=== PATIENT | male | born 1980 | race Two or more races ===

== ENCOUNTER 2018-03-06 18:35 | Emergency (ER) | payer OTHER ==
[~2018-03-06] VITALS: Ht 182.9 cm; Wt 70.3 kg
[2018-03-06 19:16] LABS: BASOPHILS # (AUTO) 0.1 K/uL (0.0-8.0); BASOPHILS % (AUTO) 0.9 % (0.0-2.0); EOSINOPHILS % (AUTO) 0.7 % (0.0-7.0); HEMATOCRIT 44.4 % (36.7-47.1); HEMOGLOBIN 14.7 g/dL (12.5-16.3); LYMPHOCYTES # (AUTO) 1.4 K/uL (20.0-40.0); LYMPHOCYTES % (AUTO) 22.9 % (20.5-51.5); MEAN CORPUSCULAR HEMOGLOBIN 28.9 uug (23.8-33.4); MEAN CORPUSCULAR HGB CONC 33 g/dL (32.5-36.3); MEAN CORPUSCULAR VOLUME 87.6 fL (73.0-96.2); MONOCYTES # (AUTO) 0.4 K/uL (2.0-10.0); MONOCYTES % (AUTO) 5.8 % (0.0-11.0); NEUTROPHILS # (AUTO) 4.2 K/uL (1.8-8.9); NEUTROPHILS % (AUTO) 69.7 % (38.5-71.5); PLATELET COUNT (AUTO) 216 K/uL (152-348); RED BLOOD CELL COUNT(AUTO) 5.07 MIL/uL (4.06-5.63)
[2018-03-06 19:27] LABS: CARBON DIOXIDE 29 mmol/L (21-32); CHLORIDE 103 mmol/L (98-107); GLUCOSE 97 mg/dL (74-106); UREA NITROGEN, BLOOD 11 mg/dL (7-18)
--- NOTE | 2018-03-06 19:28 | NUR ---
PT IS IN ROOM #1B. DR CRUZ EVALUATED THE PT.
--- NOTE | 2018-03-06 19:30 | NUR ---
REPORT GIVEN TO AUDREY FERRARO.
[2018-03-06 19:32] LABS: ALANINE AMINOTRANSFERASE 32 U/L (16-63); ALKALINE PHOSPHATASE 135 U/L (50-136); ASPARTATE AMINOTRANSFERASE 15 U/L (15-37); BILIRUBIN,DIRECT 0.1 mg/dL (0.0-0.2); BILIRUBIN,TOTAL 0.3 mg/dL (0.2-1.0); TOTAL PROTEIN, SERUM 7.5 g/dL (6.4-8.2)
[2018-03-06 19:35] LABS: ACETAMINOPHEN < 2.0 ug/mL (10-30)
[2018-03-06 19:36] LABS: ETHANOL < 3 MG/DL (0-0)
--- NOTE | 2018-03-06 19:40 | NUR ---
Report received. Patient in bed with security delivery specialist at bedside for safety. Patient denies SI and visual, auditory hallucinations. Asking why he's being held. Awaiting to be medically clear.
--- NOTE | 2018-03-06 20:00 | NUR ---
Medically cleared by Dr. Mejias. Call placed to [facility] by Jacques VENTURA.
--- NOTE | 2018-03-06 20:20 | NUR ---
Patient agitated; questioning why he's on hold. Claiming that the call was false and denying that he was going to kill self. Advised appropriately. ocean lifeguard with patient for constant supervision. Now awaiting patient's transfer to [facility] facility.
--- NOTE | 2018-03-06 20:30 | NUR ---
Spoke to Padmini Squires regarding transfering patient to [facility]. Intake will assist on setting up transfer
[2018-03-06] MEDS ORDERED: LORAZEPAM 0.5 MG TABLET PO ONE (21:15)
--- NOTE | 2018-03-06 21:18 | NUR ---
Padmini Squires from PET team called back. Instructed to Fax Facesheet to [employer]
--- NOTE | 2018-03-06 21:20 | NUR ---
Refusing po Zyprexa. Patient with increasing agitation. Demanding his belongings and a phone call. A copy of the hold given to patient.
[2018-03-06] MEDS ORDERED: OLANZAPINE ZYDIS 5 MG TAB.RAPDIS ONE (21:30)
--- NOTE | 2018-03-06 21:45 | NUR ---
1:1 information systems security analyst supervision maintained. Patient called his mom. Still denying SI and hallucinations. Advised appropriately of his hold. Able to take Zyprexa after.
[2018-03-06] MEDS: OLANZAPINE ZYDIS 5 MG TAB.RAPDIS PO SCH (21:48)
[2018-03-06] MEDS ORDERED: LORAZEPAM 0.5 MG TABLET ONE (21:56)
--- NOTE | 2018-03-06 22:25 | NUR ---
called [facility] [phone] and spoke to Dhaval herrera. Was instructed to call [facility] Intake [phone]
[2018-03-06 22:26] LABS: *BILIRUBIN,URIN NEGATIVE (NEGATIVE); *BLOOD, URINE Trace-intact (NEGATIVE); *CLARITY,URINE SLIGHTLY CLOUDY (CLEAR); *COLOR,URINE YELLOW (YELLOW); *KETONES,URINE NEGATIVE (NEGATIVE); *PROTEIN,URINE NEGATIVE (NEGATIVE); *UROBILINOGEN,URINE 0.2 E.U./dl (NORMAL); LEUKOCYTE ESTERASE ,URINE NEGATIVE (NEGATIVE); NITRITE, URINE NEGATIVE (NEGATIVE); UGLUCOSE NEGATIVE (NEGATIVE)
--- NOTE | 2018-03-06 22:30 | NUR ---
Still refusing Ativan po.
--- NOTE | 2018-03-06 22:30 | NUR ---
Spoke to intake. States they are unable to accept patient due to [facility] being an LPS center
--- NOTE | 2018-03-06 22:33 | NUR ---
Informed Padmini Squires about patient desposition. Patient will be re eval in AM
[2018-03-06 22:38] LABS: BACTERIA,URINE NONE SEEN /HPF (NONE SEEN); SQUAMOUS EPITHELIAL CELL,UR FEW /HPF (NONE SEEN); WBC,URINE 0-3 /HPF (0-3)
--- NOTE | 2018-03-06 22:55 | NUR ---
Took Ativan after discussing with patient its effects. Ambulated to the BR; constant supervision maintained.
[2018-03-06 22:57] LABS: *AMPHETAMINE, URINE POSITIVE (NEGATIVE); *BARBITURATE, URINE NEGATIVE (NEGATIVE); *CANNABINOID, URINE NEGATIVE (NEGATIVE); *COCCAINE, URINE NEGATIVE (NEGATIVE); *OPIATE, URINE NEGATIVE (NEGATIVE); *PHENCYCLIDINE SCREEN,URINE NEGATIVE (NEGATIVE)
--- NOTE | 2018-03-07 01:05 | NUR ---
Pt resting comfortably in bed. No acute distress noted. Sitter at bedside.
--- NOTE | 2018-03-07 02:32 | NUR ---
Pt resting comfortably in bed. No acute distress noted. Sitter at bedside.
[2018-03-07] MEDS ORDERED: LORAZEPAM 0.5 MG TABLET PO ONE (05:15)
[2018-03-07] MEDS ORDERED: IV NORMAL SALINE 1000 ML BAG IV ONE (05:15)
[2018-03-07] MEDS: OLANZAPINE ZYDIS 5 MG TAB.RAPDIS PO SCH (05:21)
--- NOTE | 2018-03-07 07:14 | NUR ---
Report given to day shift RN.
--- NOTE | 2018-03-07 07:15 | NUR ---
recieved pt in bed, resting, bf ordered.
--- NOTE | 2018-03-07 09:02 | NUR ---
shantell españa at bedside to evaluate the pt.
--- NOTE | 2018-03-07 09:36 | NUR ---
Patient discharged to home in stable conditon. Written and verbal after care instructions given. Patient verbalizes understanding of instructions.pt walks in steady gait, pt says feels better, finished the bf with good apetite, says has some body to take him home.
[2018-03-07 09:40] VITALS: BP 119/61
== END 2018-03-07 09:41 | disposition home or self-care (01) ==
LOC: ER 18:39
DX: R45.851 Suicidal ideations (principal); F15.10 Other stimulant abuse, uncomplicated; F17.200 Nicotine dependence, unspecified, uncomplicated
CPT/HCPCS: 36415; 80048; 80076; 80307; 81001; 85025; 93005; 99285; A4663; G0480 ×2; G0481